=== PATIENT | female | born 1950 | race African-American/Black ===

== ENCOUNTER 2018-09-12 02:06 | Emergency (ER) | payer OTHER ==
[2018-09-12] MEDS: KETOROLAC 15 MG INJ IM (02:36)
== END 2018-09-12 04:45 | disposition home or self-care (01) ==
LOC: E/R 02:06
DX: M75.121 Complete rotator cuff tear or rupture of right shoulder, not specified as traumatic (principal)
CPT/HCPCS: 29105; 73030-RT; 73060-RT; 96372; 99284-25